=== PATIENT | male | born 1990 | race Caucasian/White ===

== ENCOUNTER 2023-06-07 20:12 | Emergency (ER) | payer BC ==
[2023-06-07] MEDS ORDERED: Acetaminophen/HYDROcodone 325-5 MG Tab PO ONE ×2 (23:28→23:40)
[2023-06-07] MEDS ORDERED: Amoxicillin/Clavulanate K 875-125 MG Tab PO ONE (23:28)
== END 2023-06-07 23:54 | disposition home or self-care (01) ==
LOC: JD.ED 20:12
DX: K02.9 Dental caries, unspecified (principal)
CPT/HCPCS: 99282; A9270; 99283

== ENCOUNTER 2023-09-04 02:58 | Emergency (ER) | payer BC ==
[2023-09-04] MEDS ORDERED: Lidocaine 1% 10 ML MDV INJECT ONE (03:20)
[2023-09-04] MEDS ORDERED: Diphtheria,Pertussis(Acell),Tetanus Vaccine 0.5 ML Syringe IM ONE (04:07)
== END 2023-09-04 04:56 | disposition home or self-care (01) ==
LOC: JD.ED 02:58
DX: S61.226A Laceration with foreign body of right little finger without damage to nail, initial encounter (principal); Z23 Encounter for immunization; W23.0XXA Caught, crushed, jammed, or pinched between moving objects, initial encounter
CPT/HCPCS: 12001; 73140-26-F9; 73140-F9; 90471; 90715; 99283; 99283-25; J3490